=== PATIENT | male | born 1965 | race Caucasian/White ===

== ENCOUNTER 2018-10-25 11:53 | Outpatient (CLI) | payer OTHER ==
[2018-10-25 13:51] LABS: #Basophils 0.1 thou/uL (0.0-0.2); #Eosinphils 0.4 thou/uL (0.0-0.7); #Lymphocytes 3.1 thou/uL (1.20-3.40); #Monocytes 0.9 thou/uL (0.11-0.59); #Neutrophils 3.9 thou/uL (1.40-6.50); %Basophils 1.6 % (0.0-1.0); %Eosinophils 4.6 % (0.0-10.0); %Lymphocytes 36.7 % (21.0-51.0); Hemoglobin 16.9 g/dL (14.0-18.0); Mean Corpuscular HGB CONC 34.4 g/dL (32.0-36.0); Mean Corpuscular Hemoglobin 31.1 pg (27.0-31.0); Mean Corpuscular Volume 90.4 fL (78.0-98.0); Mean Platelet Volume 7.6 fL (7.4-10.4); Platelet Count 257 thou/uL (130-400); RBC Distribution Width 12.2 % (11.5-14.5); Red Blood Cell (RBC) Count 5.43 mill/uL (4.70-6.10); White Blood Cell (WBC) Count 8.4 thou/uL (4.8-10.8)
[2018-10-25 14:13] LABS: ALT (SGPT) 41 U/L (8-55); AST (SGOT) 25 U/L (5-34); Albumin 4.6 g/dL (3.5-5.0); Alkaline Phosphatase 70 U/L (40-150); Anion Gap 14 mmol/L (10-20); BUN (Urea Nitrogen) 19 mg/dL (8.4-25.7); Bilirubin, Total 0.9 mg/dL (0.2-1.2); Calc. Creatinine Clearance 0 mL/min (70-130); Carbon Dioxide 25 mmol/L (22-29); Chloride 98 mmol/L (98-107); Estimated GFR-MDRD 59; Glucose 97 mg/dL (70-105); Potassium 3.2 mmol/L (3.5-5.1); Protein, Total 7.6 g/dL (6.0-8.3); Sodium 134 mmol/L (136-145)
== END 2018-10-25 11:54 | disposition home or self-care (01) ==
LOC: LABBT 11:53
PROVIDERS: ATTEND Surgery
DX: Z01.818 Encounter for other preprocedural examination (principal); K64.9 Unspecified hemorrhoids
CPT/HCPCS: 80053; 85025; 93005; 93010

== ENCOUNTER 2018-11-01 07:05 | Day surgery (SDC) | payer OTHER ==
[2018-10-25 12:32] VITALS: BMI 31.5
[2018-11-01] MEDS ORDERED: metroNIDAZOLE 500 MG/100 ML BAG ONE (07:21)
[2018-11-01] MEDS ORDERED: Levofloxacin 500 mg/D5W 100 ml Premix Bag ONE (07:21)
[2018-11-01] MEDS ORDERED: Midazolam HCl 2 mg/2 ml Vial ONE (08:25)
[2018-11-01] MEDS ORDERED: Fentanyl 100 MCG/2 ML VIAL ONE ×2 (09:15→11:00)
[2018-11-01] MEDS ORDERED: Bacitracin Zinc Ointment 30 gm TUBE ONE (09:22)
[2018-11-01] MEDS ORDERED: Bupivacaine/Epinephrine 0.25% 30 ML VIAL ONE (09:22)
--- NOTE | 2018-11-01 10:52 | OP ---
DATE OF PROCEDURE: 11/01/2018 PREOPERATIVE DIAGNOSIS: Bleeding, grade 3 hemorrhoids. PROCEDURE PERFORMED: Procedure for prolapse and hemorrhoids, stapled hemorrhoidectomy. INDICATIONS: A 52-year-old male, who has been having prolapsing of his hemorrhoids and bright red blood per rectum for the last 10 years. Colonoscopy was unremarkable. No family history of colon cancer, found to have prolapsing hemorrhoids. FINDINGS: Grade 3 hemorrhoids. DESCRIPTION OF PROCEDURE: After an informed consent was obtained, the patient was taken to the operating room and given general endotracheal anesthesia. He was placed in the prone ruth-knife position. His buttock cheeks were spread apart with tape. His perianal region was prepped and draped in usual fashion. He had undergone a mechanical bowel prep at home. Local anesthesia infiltrated subcutaneously and deep with 0.5% Marcaine as a 4-quadrant anal block. Then, the introducer was inserted transanally and held in place with interrupted 0 silk suture. The pursestring guide was inserted and a pursestring of 2-0 Prolene was placed circumferentially in the rectal mucosa just about 1.5 cm proximal to the dentate line. The stapler was inserted within the anal canal. The sutures brought through the channels on the stapler with the nicolasa hook, tied as a knot, held closed around the shaft of the stapler as the stapler was closed. The stapler was then fired and held for 30 seconds, released for 30 seconds and then removed. The specimen was inspected. There was no muscle fiber sent to Pathology for further analysis. The hemostasis was achieved. There were two areas that required a 3-0 chromic [id number] right posterior and left anterior. The wound was irrigated. The staple line irrigated. Hemostasis was assured. Gelfoam impregnated with bacitracin was inserted within the anal canal. Sterile bandage was applied. The patient tolerated the procedure well, transferred to Recovery in good condition. Sponge and needle count verified correct x2. Job ID: [id number]
[2018-11-01] MEDS ORDERED: HYDROmorphone 0.5 MG/0.5 ML SYRINGE ONE (12:01)
[2018-11-01] MEDS ORDERED: HYDROcodone/Acetaminophen 5/325 mg Tablet ONE (12:53)
[2018-11-01] MEDS ORDERED: Morphine 2 MG/ML SYRINGE ONE (12:53)
[2018-11-01] MEDS ORDERED: Ondansetron PF 4 MG/2 ML Vial ONE (14:07)
== END 2018-11-02 14:50 | disposition home or self-care (01) ==
LOC: SDC 07:05
PROVIDERS: ATTEND Surgery
PROC: 06BY0ZC Excision of Hemorrhoidal Plexus, Open Approach (ICD-10-PCS; principal; 2018-11-01)
DX: K64.9 Unspecified hemorrhoids (principal); I11.9 Hypertensive heart disease without heart failure; E78.00 Pure hypercholesterolemia, unspecified; Z79.82 Long term (current) use of aspirin; Z79.899 Other long term (current) drug therapy; Z88.0 Allergy status to penicillin
CPT/HCPCS: 88304; J1170; J1956; J2250; J2270; J2405; J3010

== ENCOUNTER 2018-11-30 11:11 | Outpatient (CLI) | payer OTHER ==
--- NOTE | 2018-11-30 11:47 | RAD ---
XR Hip Rt 2-3 View INDICATION: Right hip and right knee pain COMPARISON: None FINDINGS: Bones: No acute osseous abnormality. Bone mineralization appears within normal limits. Hip joint: There is moderate right hip osteoarthrosis. SI joints and symphysis pubis: There is mild degenerative change. Intrapelvic contents: There are scattered phleboliths within the lower pelvis. Surrounding soft tissues: Radiographically normal. IMPRESSION: 1. No acute fracture or subluxation demonstrated. Moderate right hip osteoarthrosis.
--- NOTE | 2018-11-30 11:48 | RAD ---
XR Knee Rt 4 View STANDARD: 11/30/2018 12:00 AM CLINICAL INDICATION: Right knee pain for one month COMPARISON: None. FINDINGS: Bones: No acute fracture is demonstrated. Joints: There are marginal osteophytes affecting the major compartments of the right knee. No joint c apsular distention is evident.. Soft Tissue: No acute abnormality.. IMPRESSION: Mild osteoarthrosis of the right knee..
== END 2018-11-30 11:12 | disposition home or self-care (01) ==
LOC: BICRAD 11:11
PROVIDERS: ATTEND Specialist
DX: M25.551 Pain in right hip (principal); M25.561 Pain in right knee; M17.11 Unilateral primary osteoarthritis, right knee; M16.11 Unilateral primary osteoarthritis, right hip

== ENCOUNTER 2019-01-19 07:39 | Outpatient (CLI) | payer OTHER ==
--- NOTE | 2019-01-19 09:12 | MRI ---
MR of the right hip without contrast INDICATION: History of right hip pain and right knee pain COMPARISON: Right hip radiograph dated November 30, 2018 FINDINGS: There is mild tendinosis with a subtrochanteric bursitis involving the right gluteus minimu s tendon. The right mediastinum demonstrates some mild tendinosis. No iliopsoas bursitis is present. There is a focal full-thickness articular cartilage defect involving the superior acetabular on image 11 series 8 measuring 8 mm with subchondral edema. There is some intrasubstance degenerative type signal involving the anterosuperior and superior glenoid labrum without evidence of a full-thickness tear. The ligament teres is intact. No joint effusion is evident. No marrow signal abnormality is seen just presence of underlying fracture or osteonecrosis. Visualized intrapel ottoniel contents are unremarkable appearing. There is mild degenerative change involving the left hip with a full-thickness tear involving the anterior, anterior superior, posterior superior labrum. No m uscular atrophy is evident. No enlarged lymph nodes are present. There is a fat-containing right inguinal hernia. IMPRESSION: 1. Mild degenerative arthrosis of the right hip with a focal full-thickness region of cartilage thinn ing involving the superior acetabulum with underlying subchondral edema. There is mild intrasubstance degenerative signal of the right hip labrum. No definite full-thickness tear is eviden t. 2. Mild tendinosis of the right gluteus minimus tendon with mild trochanteric bursitis. 3. Mild degenerative arthrosis of the left hip with a focal full-thickness tear involving the anterio r superior, superior and posterior superior acetabular labrum of the left hip.
== END 2019-01-19 07:40 | disposition home or self-care (01) ==
LOC: TBSIIMAG 07:39
PROVIDERS: ATTEND Specialist
DX: M25.551 Pain in right hip (principal); M25.561 Pain in right knee; M16.11 Unilateral primary osteoarthritis, right hip; M70.62 Trochanteric bursitis, left hip

== ENCOUNTER 2019-02-01 11:28 | Outpatient (CLI) | payer OTHER ==
--- NOTE | 2019-02-01 11:42 | RAD ---
EXAM: XR Lumbar Spine 2 Or 3 View PROVIDED CLINICAL HISTORY: Right hip pain with radiation of pain to right knee. COMPARISON: None FINDINGS: There are 5 nonrib-bearing lumbar-type vertebral bodies. Multilevel osteophytes are seen. The vertebr al body heights and intervertebral disc spaces are within normal limits. Facet degenerative changes are seen in the lower lumbar spine. No fracture or subluxation is identified. Vascular calcifications are seen in the abdominal aorta and involving the iliac arteries. Phleboliths overlie the pelvis. IMPRESSION: Degenerative changes in the lumbar spine. No fracture or subluxation is seen.
== END 2019-02-01 11:29 | disposition home or self-care (01) ==
LOC: BICRAD 11:28
PROVIDERS: ATTEND Specialist
DX: M47.26 Other spondylosis with radiculopathy, lumbar region (principal); M54.5 Low back pain
CPT/HCPCS: 72100

== ENCOUNTER 2020-01-03 11:52 | Emergency (ER) | payer OTHER, SELFPAY ==
[2020-01-03] MEDS ORDERED: Nitroglycerin 2% Ointment 1 INCH/1 GM Packet ONE (12:41)
--- NOTE | 2020-01-03 12:55 | RAD ---
Chest one view HISTORY: Chest pain. COMPARISON: 11/03/2006. FINDINGS: Cardiac silhouette is magnified by projection. Pulmonary vasculature is unremarkable. Mediastinum is midline. No lobar consolidation or evidence of pneumothorax. Incidental note of incomplete posterior fusion of the T1 vertebra. IMPRESSION : No active cardiopulmonary abnormalities are demonstrated.
[2020-01-03] MEDS ORDERED: Metoclopramide HCl 10 MG/2 ML VIAL ONE (13:24)
[2020-01-03] MEDS ORDERED: Diltiazem 125 MG/25 ML ONE (13:24)
[2020-01-03] MEDS ORDERED: diphenhydrAMINE 50 MG/ML VIAL ONE (13:39)
[2020-01-03] MEDS ORDERED: diphenhydrAMINE 25 MG CAP ONE (13:39)
[2020-01-03 14:03] LABS: ALT (SGPT) 41 U/L (8-55); AST (SGOT) 26 U/L (5-34); Albumin 4.4 g/dL (3.5-5.0); Alkaline Phosphatase 80 U/L (40-110); Anion Gap 16 mmol/L (10-20); BUN (Urea Nitrogen) 11 mg/dL (8.4-25.7); Bilirubin, Total 0.6 mg/dL (0.2-1.2); CK (CPK) 305 U/L (30-200); Calc. Creatinine Clearance 0 mL/min (70-130); Calcium 9.9 mg/dL (7.8-10.44); Carbon Dioxide 26 mmol/L (22-29); Chloride 100 mmol/L (98-107); Estimated GFR-MDRD 68; Globulin 2.9 g/dL (2.4-3.5); Glucose 103 mg/dL (70-105); Lipase 15 U/L (8-78); Protein, Total 7.3 g/dL (6.0-8.3); Sodium 138 mmol/L (136-145)
[2020-01-03 14:09] LABS: #Basophils 0.1 thou/uL (0.0-0.2); #Eosinphils 0.3 thou/uL (0.0-0.7); #Lymphocytes 2.3 thou/uL (1.20-3.40); #Monocytes 0.7 thou/uL (0.11-0.59); #Neutrophils 3.8 thou/uL (1.40-6.50); %Basophils 1.5 % (0.0-1.0); %Eosinophils 4.6 % (0.0-10.0); %Lymphocytes 32.2 % (21.0-51.0); %Monocytes 9.9 % (0.0-10.0); %Neutrophils 51.9 % (42.0-75.0); Hemoglobin 16.2 g/dL (14.0-18.0); Mean Corpuscular HGB CONC 33.8 g/dL (32.0-36.0); Mean Corpuscular Hemoglobin 30.7 pg (27.0-31.0); Mean Corpuscular Volume 90.9 fL (78.0-98.0); Mean Platelet Volume 8.3 fL (7.4-10.4); Platelet Count 233 thou/uL (130-400); RBC Distribution Width 12.6 % (11.5-14.5); Red Blood Cell (RBC) Count 5.28 mill/uL (4.70-6.10); White Blood Cell (WBC) Count 7.3 thou/uL (4.8-10.8)
--- NOTE | 2020-01-03 14:54 | CT ---
CT HEAD WITHOUT IV CONTRAST COMPARISON: None. HISTORY: Headache and elevated blood pressure. Nausea. TECHNIQUE: Axial CT imaging at 5 mm intervals from vertex through skull base without contrast FINDINGS: There is no evidence of an acute infarction, hemorrhage, mass effect, or midline shift. The ventricul ar system is normal in size, shape, and position. Skull base has a normal CT appearance. Mucosal thickening is present in the right sphenoid sinus and bilateral ethmoidal air cells. Mastoid air cells are clear. Osseous structures appear intact. IMPRESSION: 1. No acute intracranial abnormality demonstrated. 2. Sinus disease.
== END 2020-01-03 15:23 | disposition home or self-care (01) ==
LOC: ERS 11:52
DX: J01.90 Acute sinusitis, unspecified (principal); I10 Essential (primary) hypertension
CPT/HCPCS: 36415; 70450; 71045; 80053; 82550; 83690; 83880; 84484; 85025; 85379; 93005; 96365; 96375; J1200; J2765; Q0163

== ENCOUNTER 2021-10-25 14:25 | Emergency (ER) | payer OTHER, SELFPAY | END 2021-10-25 15:27 | disposition home or self-care (01) | LOC: ERS 14:25 | DX: L25.9 Unspecified contact dermatitis, unspecified cause (principal); I10 Essential (primary) hypertension; E78.00 Pure hypercholesterolemia, unspecified | CPT/HCPCS: 99282 ==